=== PATIENT | female | born 1950 | race Caucasian/White ===

== ENCOUNTER 2016-10-31 07:46 | Day surgery (SDC) | payer MEDICARE ==
[~2016-10-31] VITALS: Ht 167.6 cm; Wt 112.0 kg
[~2016-10-31 07:46] MED LIST: ACET-2766 PO; ASPI-973 PO; CYCL10TA9 PO; GABA-502 PO; HYDR-4150 PO; LEVO112T4 PO; LOV40 SUBQ; PRAV40TA PO; TRAM50TA2 PO; fentaNYL-PF 50 mCg/mL 2 mL Inj IVPUSH PRN
[2016-10-31] MEDS ORDERED: 0.9% Sodium Chloride 1,000 ML ONE (08:00)
[2016-10-31 08:06] VITALS: BP 147/86; PULSE 80; RESP 17; O2SAT 96
[2016-10-31 08:55] VITALS: BP 120/68; PULSE 63; RESP 16; O2SAT 95
[2016-10-31 09:05] VITALS: BP 98/58; PULSE 76; RESP 16; O2SAT 97
[2016-10-31 09:14] VITALS: BP 127/81; PULSE 74; RESP 16; O2SAT 97
--- NOTE | 2016-10-31 13:28 | ENDO ---
[address] [address] ENDOSCOPY PROCEDURE PATIENT: NEGRITA REYES : 1950 MR#: [id number] ADMIT: 10/31/2016 JOB ID: [id number] DATE OF SERVICE: 10/31/2016 TYPE OF OPERATION: Colonoscopy with biopsy. PREOPERATIVE DIAGNOSIS(ES): 1. History of colon polyps. 2. No family history of colon cancer. POSTOPERATIVE DIAGNOSIS(ES): 1. Three polyps seen in the sigmoid colon, removed by cold biopsy forceps. Largest size 2 mm in diameter. 2. A 2 mm transverse colon polyp, removed by cold biopsy forceps. 3. Sigmoid diverticulosis. 4. Status post right hemicolectomy. 5. Small internal hemorrhoids. ANESTHESIA: Fentanyl 75 mcg and Versed 3 mg administered. COMPLICATIONS: None. BLOOD LOSS: Minimal. DESCRIPTION OF PROCEDURE: After risks and benefits were explained to the patient, informed consent was obtained. After anesthesia administered, a colonoscope was then inserted from the rectum to the cecum to the right hemicolectomy. Mucosa carefully examined. After procedure was done, the scope withdrawn and procedure terminated. FINDINGS: Upon inspection of the anus, no masses, hemorrhoids, ulcers, or fissures that were seen. Throughout the entire examination, there were three polyps seen in the sigmoid colon and one polyp seen in the transverse colon, all measuring about 2 mm in diameter, removed by cold biopsy forceps. There was also a right hemicolectomy that was seen from prior surgery, and diverticulosis, which was found in the sigmoid colon. Retroflexion showed small internal hemorrhoids. IMPRESSION: 1. Small internal hemorrhoids. 2. Four polyps removed, 2 mm in diameter, in the sigmoid and transverse colon, status post biopsy. 3. Sigmoid diverticulosis. 4. Right hemicolectomy. RECOMMENDATIONS: Await pathology results. If three or more tubular adenoma polyps, the next colonoscopy in three years. Otherwise, her next colonoscopy should be in five years.
[2016-11-01] MEDS ORDERED: 0.9% Sodium Chloride 1,000 ML IV SCH (06:00)
[2016-11-01] MEDS ORDERED: Sodium Chloride LOK Flush 10 mL Syringe IV PRN (06:00)
--- NOTE | 2016-11-03 14:19 | PATH ---
SURGICAL PATHOLOGY Attending Physician:Dilip Livingston MD CASE STATUS: Signed Out PATIENT NAME: NEGRITA REYES PID: [id number] : 1950 DATE COLLECTED:10/31/2016 21:13 SPECIMEN: 1: Colon, Biopsy 2: Colon, Biopsy CLINICAL HISTORY: HISTORY OF COLON POLYPS 1). TRANSVERSE COLON POLYP 2). SIGMOID POLYPS X3 FINAL DIAGNOSIS: 1.TRANSVERSE COLON POLYP: TUBULAR ADENOMA INVOLVING ALL THREE BIOPSY FRAGMENTS. 2.SIGMOID COLON POLYPS: HYPERPLASTIC POLYP INVOLVING THREE BIOPSY FRAGMENTS. ICD10 CODE D12.3 GROSS DESCRIPTION: Received are two formalin-filled containers, both labeled with the patient' s name: 1. Received in formalin, labeled with the patient' s name and "transverse polyp", are four fragments of beaver, soft tissue ranging in size from less than 0.1 cm by less than 0.1 cm by less than 0.1 cm to 0.2 x 0.1 x 0.1 cm. All fragments are totally submitted in cassette 1A. 2. Received in formalin, labeled with the patient' s name and "sigmoid polyps", are five fragments of beaver, soft tissue ranging in size from 0.1 x 0.1 x 0.1 cm to 0.2 x 0.1 x 0.1 cm. All fragments are totally submitted in cassette 2A. ([id number]) MICRO DESCRIPTION: See diagnosis. ICD-9 CODES: CPT CODES: 1: 69128 2: 66989 Electronically Signed Out Matthew Sen MD [facility] Pathology [facility] [address] [place] [address] Technical component performed at [facility], [facility] [address], [place], [address]
== END 2016-10-31 23:59 | disposition home or self-care (01) ==
LOC: END 07:46
PROVIDERS: ATTEND Internal Medicine Gastroenterology
DX: Z12.11 Encounter for screening for malignant neoplasm of colon (principal); D12.3 Benign neoplasm of transverse colon; K63.5 Polyp of colon; K57.30 Diverticulosis of large intestine without perforation or abscess without bleeding; K64.8 Other hemorrhoids; Z86.010 Personal history of colon polyps; Z80.0 Family history of malignant neoplasm of digestive organs; E03.9 Hypothyroidism, unspecified; Z79.82 Long term (current) use of aspirin
CPT/HCPCS: 45380; 88305; G0500; J2250; J3010; J7030